=== PATIENT | female | born 1945 | race Two or more races ===

== ENCOUNTER 2017-04-30 21:00 | Inpatient (IN) | payer MEDICAID, MEDICARE ==
[~2017-04-30] VITALS: Ht 172.7 cm; Wt 91.2 kg
[2017-04-30 23:24] LABS: BASOPHILS % (AUTO) 0.3 % (0.0-2.0); EOSINOPHILS # (AUTO) 0.2 /CMM (0.0-0.7); HEMATOCRIT 34 % (33-45); HEMOGLOBIN 11.6 g/dL (11.5-14.8); LYMPHOCYTES # (AUTO) 0.9 /CMM (0.8-4.8); LYMPHOCYTES % (AUTO) 11.1 % (20.0-44.0); MEAN CORPUSCULAR HEMOGLOBIN 32 PG (26.0-33.0); MEAN CORPUSCULAR HGB CONC 34 g/dl (31.0-36.0); MEAN CORPUSCULAR VOLUME 95 fL (82-100); MONOCYTES # (AUTO) 0.5 /CMM (0.1-1.30); MONOCYTES % (AUTO) 6.3 % (2.0-12.0); NEUTROPHILS # (AUTO) 6.1 /CMM (1.8-8.9); NEUTROPHILS % (AUTO) 79.3 % (43.0-81.0); PLATELET COUNT (AUTO) 173 /CMM (150-450); RDW COEFFICIENT OF VARIATION 16.4 (11.5-15.0); WHITE BLOOD COUNT (AUTO) 7.7 K/uL (4.3-11.0)
[2017-04-30 23:53] LABS: CALCIUM, SERUM 9.3 mg/dL (8.5-10.1); CARBON DIOXIDE 25 mmol/L (21-32); CHLORIDE 94 mmol/L (98-107); CREATININE 7.3 mg/dL (0.6-1.3); SODIUM SERUM 132 mmol/L (136-145); UREA NITROGEN, BLOOD 78 mg/dL (7-18)
[2017-05-01 00:07] LABS: GLUCOSE 396 mg/dL (74-106); POTASSIUM 6.8 mmol/L (3.5-5.1)
[2017-05-01] MEDS ORDERED: INSULIN REGULAR, HUMAN 100 UNIT/ML 10 ML VIAL ONE (00:59)
[2017-05-01] MEDS ORDERED: INSULIN REGULAR, HUMAN 100 UNIT/ML 10 ML VIAL IV ONE (01:00)
[2017-05-01] MEDS ORDERED: Z GUARD REMEDY 2 OZ OINT TP PRN (02:30)
[2017-05-01] MEDS ORDERED: MAGNESIUM HYDROXIDE 30 ML UDC PO PRN (02:30)
[2017-05-01] MEDS ORDERED: ONDANSETRON HCL/PF 4 MG/2 ML VIAL IVP PRN (02:30)
[2017-05-01] MEDS ORDERED: MAG HYDROX/AL HYDROX/SIMETH 30 ML UDC PO PRN (02:30)
[2017-05-01] MEDS ORDERED: DEXTROSE 50%-WATER 50 ML DISP.SYRIN IV PRN (02:30)
[2017-05-01] MEDS ORDERED: MORPHINE SULFATE INJ 2 MG/ML DISP.SYRIN IV PRN (02:30)
[2017-05-01 03:15] VITALS: BP 151/69
[2017-05-01] MEDS: INSULIN REGULAR, HUMAN 100 UNIT/ML 3 ML VIAL SQ PRN ×2 (06:25→18:06)
[2017-05-01] MEDS: BLOOD SUGAR DIAGNOSTIC 1 EACH STRIP VI SCH ×4 (06:27→21:37)
[2017-05-01 08:00] VITALS: BP 115/53
[2017-05-01] MEDS ORDERED: ATOR20TA PO (08:12)
[2017-05-01] MEDS ORDERED: OMEP1CAP25 PO (08:12)
[2017-05-01] MEDS ORDERED: CARV25TA2 PO (08:12)
[2017-05-01] MEDS ORDERED: ENAL20TA PO (08:12)
[2017-05-01] MEDS ORDERED: CALC667C6 PO (08:12)
[2017-05-01] MEDS ORDERED: AMLO10TA2 PO (08:12)
[2017-05-01] MEDS ORDERED: HYDR-4076 PO (08:12)
[2017-05-01] MEDS ORDERED: ALBU18HF2 IH (08:12)
[2017-05-01] MEDS ORDERED: FLUT1DIS5 IH (08:12)
[2017-05-01] MEDS: ACETAMINOPHEN 325 MG TABLET PO PRN ×2 (09:32→18:32)
[2017-05-01 12:06] VITALS: BP 126/50
[2017-05-01] MEDS ORDERED: NA PHOS,M-B/NA PHOS,DI-BA 1 EA ENEMA RC PRN (14:30)
[2017-05-01 16:00] VITALS: BP 162/62
[2017-05-01] MEDS ORDERED: FLUTICASONE/SALMETEROL DISKUS IH SCH (17:00)
[2017-05-01] MEDS: CALCIUM ACETATE 667 MG TABLET PO SCH (18:10)
[2017-05-01] MEDS: hydrALAZINE HCL 25 MG TABLET PO SCH (18:11)
[2017-05-01] MEDS: FLUTICASONE/VILANTEROL 1 EACH BLST.W.DEV IH SCH (18:57)
[2017-05-01] MEDS ORDERED: ALBUTEROL FS 2.5 MG/0.5 ML VIAL.NEB NEB PRN (19:30)
[2017-05-01 20:00] VITALS: BP 144/65
[2017-05-01] MEDS: ATORVASTATIN 10 MG TABLET PO SCH (21:35)
[2017-05-01] MEDS: HEPARIN SODIUM, PORCINE 5000 UNITS/1 ML VIAL SQ SCH (21:36)
[2017-05-01] MEDS: CARVEDILOL 12.5 MG TABLET PO SCH (21:37)
[2017-05-01] MEDS: *INSULIN REGULAR(HUMULIN R)HUM 100 UNIT/ML VIAL SQ PRN (21:39)
[2017-05-01] MEDS: ZOLPIDEM TARTRATE 5 MG TABLET PO PRN (21:39)
[2017-05-01 22:00] VITALS: BP 154/67
[2017-05-02] VITALS: BP 135/54
[2017-05-02 04:00] VITALS: BP 139/59
[2017-05-02] MEDS: ACETAMINOPHEN 325 MG TABLET PO PRN ×2 (04:17→10:12)
[2017-05-02] MEDS: BLOOD SUGAR DIAGNOSTIC 1 EACH STRIP VI SCH ×4 (06:41→21:33)
[2017-05-02] MEDS: INSULIN REGULAR, HUMAN 100 UNIT/ML 3 ML VIAL SQ PRN ×3 (06:43→18:02)
[2017-05-02 07:44] LABS: BASOPHILS % (AUTO) 0.5 % (0.0-2.0); EOSINOPHILS # (AUTO) 0.3 /CMM (0.0-0.7); EOSINOPHILS % (AUTO) 4.6 % (0.0-6.0); HEMATOCRIT 31 % (33-45); HEMOGLOBIN 10.5 g/dL (11.5-14.8); LYMPHOCYTES # (AUTO) 0.9 /CMM (0.8-4.8); LYMPHOCYTES % (AUTO) 15.3 % (20.0-44.0); MEAN CORPUSCULAR HEMOGLOBIN 32 PG (26.0-33.0); MEAN CORPUSCULAR HGB CONC 34 g/dl (31.0-36.0); MEAN CORPUSCULAR VOLUME 95 fL (82-100); MONOCYTES # (AUTO) 0.5 /CMM (0.1-1.30); MONOCYTES % (AUTO) 8.5 % (2.0-12.0); NEUTROPHILS # (AUTO) 4.3 /CMM (1.8-8.9); NEUTROPHILS % (AUTO) 71.1 % (43.0-81.0); PLATELET COUNT (AUTO) 137 /CMM (150-450); RDW COEFFICIENT OF VARIATION 16.3 (11.5-15.0); RED BLOOD CELL COUNT(AUTO) 3.28 MIL/uL (4.0-5.2)
[2017-05-02 08:00] VITALS: BP 130/64
[2017-05-02 08:08] LABS: CALCIUM, SERUM 8.8 mg/dL (8.5-10.1); CARBON DIOXIDE 25 mmol/L (21-32); CHLORIDE 97 mmol/L (98-107); CREATININE 6.8 mg/dL (0.6-1.3); GLUCOSE 162 mg/dL (74-106); MAGNESIUM 1.9 mg/dL (1.8-2.4); PHOSPHORUS 4.2 mg/dL (2.5-4.9); SODIUM SERUM 134 mmol/L (136-145); UREA NITROGEN, BLOOD 67 mg/dL (7-18)
[2017-05-02] MEDS: FLUTICASONE/VILANTEROL 1 EACH BLST.W.DEV IH SCH (09:15)
[2017-05-02] MEDS: HEPARIN SODIUM, PORCINE 5000 UNITS/1 ML VIAL SQ SCH ×2 (09:16→21:32)
[2017-05-02] MEDS: CALCIUM ACETATE 667 MG TABLET PO SCH ×3 (09:16→18:04)
[2017-05-02] MEDS: CARVEDILOL 12.5 MG TABLET PO SCH ×2 (09:18→21:31)
[2017-05-02] MEDS: AMLODIPINE BESYLATE 10 MG TABLET PO SCH (09:18)
[2017-05-02] MEDS: hydrALAZINE HCL 25 MG TABLET PO SCH ×3 (09:19→17:00)
[2017-05-02 16:00] VITALS: BP 104/46
[2017-05-02 20:00] VITALS: BP 128/54
[2017-05-02] MEDS: ATORVASTATIN 10 MG TABLET PO SCH (21:30)
[2017-05-02] MEDS: *INSULIN REGULAR(HUMULIN R)HUM 100 UNIT/ML VIAL SQ PRN (21:34)
[2017-05-02] MEDS: ZOLPIDEM TARTRATE 5 MG TABLET PO PRN (21:42)
[2017-05-03 06:29] LABS: CALCIUM, SERUM 9.4 mg/dL (8.5-10.1); CARBON DIOXIDE 28 mmol/L (21-32); CHLORIDE 93 mmol/L (98-107); CREATININE 5.6 mg/dL (0.6-1.3); GLUCOSE 157 mg/dL (74-106); PHOSPHORUS 4.2 mg/dL (2.5-4.9); POTASSIUM 5.3 mmol/L (3.5-5.1); SODIUM SERUM 131 mmol/L (136-145); UREA NITROGEN, BLOOD 49 mg/dL (7-18)
[2017-05-03] MEDS: BLOOD SUGAR DIAGNOSTIC 1 EACH STRIP VI SCH ×4 (06:31→21:23)
[2017-05-03] MEDS: INSULIN REGULAR, HUMAN 100 UNIT/ML 3 ML VIAL SQ PRN ×3 (06:33→17:50)
[2017-05-03 06:38] LABS: BASOPHILS % (AUTO) 0.4 % (0.0-2.0); EOSINOPHILS # (AUTO) 0.2 /CMM (0.0-0.7); EOSINOPHILS % (AUTO) 3.7 % (0.0-6.0); HEMATOCRIT 35 % (33-45); HEMOGLOBIN 11.6 g/dL (11.5-14.8); LYMPHOCYTES # (AUTO) 0.9 /CMM (0.8-4.8); LYMPHOCYTES % (AUTO) 16.8 % (20.0-44.0); MEAN CORPUSCULAR HEMOGLOBIN 32 PG (26.0-33.0); MEAN CORPUSCULAR HGB CONC 33 g/dl (31.0-36.0); MEAN CORPUSCULAR VOLUME 96 fL (82-100); MONOCYTES # (AUTO) 0.5 /CMM (0.1-1.30); MONOCYTES % (AUTO) 9.1 % (2.0-12.0); NEUTROPHILS # (AUTO) 3.8 /CMM (1.8-8.9); PLATELET COUNT (AUTO) 136 /CMM (150-450); RDW COEFFICIENT OF VARIATION 16.3 (11.5-15.0); RED BLOOD CELL COUNT(AUTO) 3.67 MIL/uL (4.0-5.2); WHITE BLOOD COUNT (AUTO) 5.4 K/uL (4.3-11.0)
[2017-05-03 08:00] VITALS: BP 142/89
[2017-05-03] MEDS: CALCIUM ACETATE 667 MG TABLET PO SCH ×3 (08:35→17:45)
[2017-05-03] MEDS: ACETAMINOPHEN 325 MG TABLET PO PRN ×2 (08:35→17:48)
[2017-05-03] MEDS: FLUTICASONE/VILANTEROL 1 EACH BLST.W.DEV IH SCH (08:36)
[2017-05-03] MEDS: CARVEDILOL 12.5 MG TABLET PO SCH ×2 (08:36→21:20)
[2017-05-03] MEDS: hydrALAZINE HCL 25 MG TABLET PO SCH ×3 (08:36→17:45)
[2017-05-03] MEDS: AMLODIPINE BESYLATE 10 MG TABLET PO SCH (08:36)
[2017-05-03] MEDS: HEPARIN SODIUM, PORCINE 5000 UNITS/1 ML VIAL SQ SCH ×2 (08:42→21:22)
[2017-05-03 16:00] VITALS: BP 147/47
[2017-05-03 20:00] VITALS: BP 125/59
[2017-05-03] MEDS: ATORVASTATIN 10 MG TABLET PO SCH (21:20)
[2017-05-03] MEDS: *INSULIN REGULAR(HUMULIN R)HUM 100 UNIT/ML VIAL SQ PRN (21:23)
[2017-05-04] MEDS: ZOLPIDEM TARTRATE 5 MG TABLET PO PRN (01:37)
[2017-05-04] MEDS: ACETAMINOPHEN 325 MG TABLET PO PRN ×2 (01:37→14:15)
[2017-05-04] MEDS: BLOOD SUGAR DIAGNOSTIC 1 EACH STRIP VI SCH ×2 (06:36→11:39)
[2017-05-04 08:00] VITALS: BP 156/64
[2017-05-04] MEDS: AMLODIPINE BESYLATE 10 MG TABLET PO SCH (09:00)
[2017-05-04] MEDS: hydrALAZINE HCL 25 MG TABLET PO SCH ×2 (09:00→14:39)
[2017-05-04] MEDS: CALCIUM ACETATE 667 MG TABLET PO SCH ×2 (09:27→12:56)
[2017-05-04] MEDS: FLUTICASONE/VILANTEROL 1 EACH BLST.W.DEV IH SCH (09:28)
[2017-05-04] MEDS: HEPARIN SODIUM, PORCINE 5000 UNITS/1 ML VIAL SQ SCH (09:28)
[2017-05-04] MEDS: CARVEDILOL 12.5 MG TABLET PO SCH (09:28)
[2017-05-04] MEDS: INSULIN REGULAR, HUMAN 100 UNIT/ML 3 ML VIAL SQ PRN (11:39)
[2017-05-04 14:39] VITALS: BP 161/70
== END 2017-05-04 15:32 | DRG 341 ==
LOC: ER 21:01 → TELE 05-01 02:15 → MED 05-02 08:30
PROVIDERS: ADMIT Internal Medicine; ATTEND Internal Medicine
PROC: 5A1D70Z Performance of Urinary Filtration, Intermittent, Less than 6 Hours Per Day (ICD-10-PCS; principal; 2017-05-01)
PROC: 5A1D70Z Performance of Urinary Filtration, Intermittent, Less than 6 Hours Per Day (ICD-10-PCS; 2017-05-02)
PROC: 5A1D70Z Performance of Urinary Filtration, Intermittent, Less than 6 Hours Per Day (ICD-10-PCS; 2017-05-04)
DX: S32.502A Unspecified fracture of left pubis, initial encounter for closed fracture (principal); I50.33 Acute on chronic diastolic (congestive) heart failure; E11.22 Type 2 diabetes mellitus with diabetic chronic kidney disease; N18.6 End stage renal disease; S32.592A Other specified fracture of left pubis, initial encounter for closed fracture; E11.65 Type 2 diabetes mellitus with hyperglycemia; I13.2 Hypertensive heart and chronic kidney disease with heart failure and with stage 5 chronic kidney disease, or end stage renal disease; N39.0 Urinary tract infection, site not specified; E11.9 Type 2 diabetes mellitus without complications; W01.0XXA Fall on same level from slipping, tripping and stumbling without subsequent striking against object, initial encounter; Y92.9 Unspecified place or not applicable; I11.0 Hypertensive heart disease with heart failure; E87.1 Hypo-osmolality and hyponatremia; Z88.5 Allergy status to narcotic agent; Z88.0 Allergy status to penicillin; E87.5 Hyperkalemia; E78.5 Hyperlipidemia, unspecified; I25.10 Atherosclerotic heart disease of native coronary artery without angina pectoris; K59.00 Constipation, unspecified; K21.9 Gastro-esophageal reflux disease without esophagitis; J44.9 Chronic obstructive pulmonary disease, unspecified; Z79.82 Long term (current) use of aspirin; Z99.2 Dependence on renal dialysis; M85.9 Disorder of bone density and structure, unspecified; Z79.899 Other long term (current) drug therapy; M85.80 Other specified disorders of bone density and structure, unspecified site
CPT/HCPCS: 36415; 71045-TC; 72110-TC; 73502; 73562; 80048-TC; 82306; 82962-TC; 83735-TC; 83970; 84100-TC; 84132-TC; 85025-TC; 87081-TC; 90935-TC; 97110-TC; 97530-TC; A4606; J1644; J1815; Z7610